=== PATIENT | male | born 1990 | race Caucasian/White ===

== ENCOUNTER 2019-05-25 13:02 | Emergency (ER) | payer SELFPAY ==
[~2019-05-25] VITALS: Ht 180.3 cm; Wt 146.5 kg
[2019-05-25 13:08] VITALS: BP 134/86; Ht 180.3 cm; Wt 146.5 kg
[2019-05-25 13:49] LABS: BASOPHIL % 0.5 % (0-2); PLATELET COUNT 292 x10^3mcL (130-400); RED CELL DISTRIBUTION WIDTH 13.5 % (11.5-14.5)
[2019-05-25 14:09] LABS: CALCIUM 9.5 mg/dL (8.5-10.1); CARBON DIOXIDE 27.1 mmol/L (21-32); CHLORIDE SERUM 102 mmol/L (98-107); CREATININE SERUM 0.9 mg/dL (0.7-1.3); GFR1 > 60 mL/min; GLUCOSE SERUM 154 mg/dL (74-106); POTASSIUM SERUM 3.7 mmol/L (3.5-5.1); SODIUM SERUM 140 mmol/L (136-145)
[2019-05-25 14:14] LABS: ALBUMIN 4.1 g/dL (3.4-5.0); ALKALINE PHOSPHATASE 70 U/L (46-116); ALT/SGPT 55 U/L (16-63); AST/SGOT 22 U/L (15-37); BILIRUBIN TOTAL 0.6 mg/dL (0.20-1.00); TOTAL PROTEIN, SERUM 8.1 g/dL (6.4-8.2)
[2019-05-25 14:34] LABS: AMPHETAMINE QUAL UR NONE DETECTED (See below)
== END 2019-05-25 14:31 | disposition home or self-care (01) ==
LOC: ED 13:02
PROVIDERS: Emergency Medicine
DX: F41.9 Anxiety disorder, unspecified (principal); R53.83 Other fatigue
CPT/HCPCS: 36415

== ENCOUNTER 2020-03-06 09:38 | Emergency (ER) | payer MEDICAID ==
[~2020-03-06] VITALS: Ht 180.3 cm; Wt 149.7 kg
[2020-03-06 09:49] VITALS: Ht 180.3 cm; Wt 149.7 kg
[2020-03-06 10:43] VITALS: BP 136/90
== END 2020-03-06 10:43 | disposition home or self-care (01) ==
LOC: ED 09:38
DX: K42.9 Umbilical hernia without obstruction or gangrene (principal); K21.9 Gastro-esophageal reflux disease without esophagitis